=== PATIENT | female | born 1970 | race Caucasian/White ===

== ENCOUNTER → 2020-09-03 | Outpatient (CLI) | payer MEDICAID, SELFPAY ==
--- NOTE | 2020-09-03 | CYSPIN_PTH ---
PATIENT: DOMITILA VARGAS LOC: [facility] U#:[id number] AGE/SX: 50/F ROOM: RE09/03/[address]: Dr. Aylin Castaneda MD : 1970 BED: DIS: 09/03/2020 SPEC #: [id number] RECD: 09/04/20 07:12 STATUS: TANYA REDanielle #: [id number] MIRELLA: 09/03/20 00:[address]: Aylin Castaneda DEPT: CYTOLOGY RECD BY: Wayne Gerber ENTERED: 09/04/20 07:12 SP TYPE: CYSPIN FL OTHR DR: Dr. Jose Luis Chisholm, Tissues: Urine Procedures: Pap Stain (control) Special Stain Group II Cytospin Fluid HEADER OPERATION: Not noted PRE-OP DIAGNOSIS: Gross hematuria TISSUE SUBMITTED: Urine for cytology DIAGNOSIS CYTOLOGY Urine for cytology (cytospin): Negative for malignant cells. Acute inflammation. See comment. SJ:roverto 09/05/2020 COMMENT Organisms consistent with bacteria are also noted. Clinical correlation and appropriate follow up are necessary. CYTOLOGY STUDY Slides are reviewed. CYTOLOGY GROSS Received is 40 ml of yellow cloudy fluid labeled with the patient's name and and designated per the requisition as urine. Submitted for cytology preparation. / roverto 09/04/2020 TC:2 CPT: 84811
[2020-09-03 14:45] LABS: Cytology, Body Fluid / CSF SEE PATHOLOGY REPORT
== END | disposition home or self-care (01) ==
PROVIDERS: PCP Family Medicine; Referring Provider Urology; Visit Provider Urology
DX: R31.0 Gross hematuria (principal)
CPT/HCPCS: 88108; 88313

== ENCOUNTER → 2020-10-26 | Outpatient (CLI) | payer MEDICAID, SELFPAY ==
--- NOTE | 2020-10-26 | CYSPIN_PTH ---
PATIENT: DOMITILA VARGAS LOC: [facility] U#:[id number] AGE/SX: 50/F ROOM: RE10/26/[address]: Dr. Aylin Castaneda MD : 1970 BED: DIS: 10/26/2020 SPEC #: [id number] RECD: 10/29/20 08:01 STATUS: TANYA REDanielle #: [id number] MIRELLA: 10/26/20 00:[address]: Aylin Castaneda DEPT: CYTOLOGY RECD BY: Wayne Gerber ENTERED: 10/29/20 08:01 SP TYPE: CYSPIN FL OTHR DR: Dr. Fatou Neal, DO Tissues: Urine Procedures: Pap Stain (control) Special Stain Group II Cytospin Fluid HEADER OPERATION: Not noted PRE-OP DIAGNOSIS: Gross hematuria, urgency TISSUE SUBMITTED: Urine for cytology DIAGNOSIS CYTOLOGY Urine for cytology (cytospin): Negative for malignant cells. AM:roverto 10/30/2020 CYTOLOGY STUDY Slides are reviewed. CYTOLOGY GROSS Received is 50 ml of yellow cloudy fluid labeled with the patient's name and and designated per the requisition as urine. Submitted for cytology preparation. / rg 10/29/2020 TC:5 CPT: 82392
[2020-10-26 15:59] LABS: Cytology, Body Fluid / CSF SEE PATHOLOGY REPORT
== END | disposition home or self-care (01) ==
LOC: LABSPEC 15:39
PROVIDERS: PCP Family Medicine; Referring Provider Urology; Visit Provider Urology
DX: R31.0 Gross hematuria (principal); N39.41 Urge incontinence; R35.0 Frequency of micturition
CPT/HCPCS: 88108; 88313

== ENCOUNTER → 2024-08-24 | Outpatient (CLI) | payer MEDICAID, SELFPAY ==
--- NOTE | 2024-08-24 09:30 | BON_PTH ---
PATIENT: DOMITILA VARGAS [facility][id number] AGE/SX: 54/F ROOM: RE08/24/[address]: Dr. Luis Enrique Conde DPM : 1970 BED: DIS: 08/24/2024 SPEC #: [id number] RECD: 08/25/24 10:07 STATUS: TANYA CECILIA #: [id number] MIRELLA: 08/24/24 09:[address]: Luis Enrique Conde DEPT: SURGICAL PATHOLOGY RECD BY: Gena Gastelum ENTERED: 08/25/24 10:08 SP TYPE: Bone OTHR DR: Dr. Fatou Neal, DO Tissues: Bone of foot, NOS Procedures: Decalcification bone/plaque Surgery Specimen Level IV HEADER OPERATION: Not noted PRE-OP DIAGNOSIS: Other acute osteomyelitis in the left ankle and foot TISSUE SUBMITTED: Pathology MICROSCOPIC DIAGNOSIS Left second toe, amputation: Focal ulceration, acute and chronic inflammation and granulation tissue reaction. Underlying bone with reactive changes and focal mild chronic inflammation. Negative for acute osteomyelitis. NEREIDA. 08/29/2024 MICROSCOPIC DESCRIPTION Slides are reviewed. GROSS DESCRIPTION Received in fixative is one container labeled with the patient's name and designated Left second toe. The specimen consists of a portion of toe measuring 2.0 x 2.0 x 1.5cm. Focal area of ulceration is noted at the tip of the toe. [employer] sections are submitted in two cassettes after decalcification. 08/25/2024 TC:2 CPT:52294,30048
== END | disposition home or self-care (01) ==
LOC: LABSPEC 16:47
PROVIDERS: PCP Family Medicine; Visit Provider Podiatrist
DX: M86.172 Other acute osteomyelitis, left ankle and foot (principal)
CPT/HCPCS: 88305; 88311